=== PATIENT | female | born 1975 | race Caucasian/White ===

== ENCOUNTER 2024-03-31 20:15 | Emergency (ER) | payer OTHER, SELFPAY ==
[2024-03-31] VITALS (17 sets, daily range): BP systolic 90–102; BP diastolic 50–59; PULSE 59–72; RESP 12–22; TEMP 36.6; O2SAT 92–96; BMI 17.4
--- NOTE | 2024-03-31 20:33 | DI.RAD.S_ITS ---
PROCEDURE: XR CHEST 1V INDICATIONS: chest pain TECHNIQUE: One view of the chest was acquired. COMPARISON: None. FINDINGS: Surgical changes and devices: None. Lungs and pleura: Lungs are clear. No pleural effusions or pneumothorax. Mediastinum: Mediastinal contours appear normal. Heart size is normal. Bones and chest wall: No suspicious bony lesions. Overlying soft tissues appear unremarkable. IMPRESSION: No acute cardiopulmonary abnormality is seen. Dictated by: Juan Dela Cruz M.D. on 03/31/2024 at 21:09 Approved by: Juan Dela Cruz M.D. on 03/31/2024 at 21:09
[2024-03-31 20:42] LABS: Prothrombin Time 11.4 SECONDS (9.4-12.5)
[2024-03-31 20:44] LABS: PTT Partial Thromboplastin Tim 37 SECONDS (25.1-36.5)
[2024-03-31 20:46] LABS: Alanine Aminotransferase 47 IU/L (<35); Albumin 4.5 g/dL (3.5-5.0); Albumin Globulin Ratio 1.3 (1.0-2.8); Alkaline Phosphatase 57 U/L (38-126); Aspartate Aminotransferase 87 IU/L (14-36); BUN Creatinine Ratio 31.7 (6-22); Bilirubin Total 0.3 mg/dL (0.2-1.3); Blood Urea Nitrogen 19 mg/dL (7-17); Carbon Dioxide 30 mmol/L (22-32); Chloride 104 mmol/L (98-107); Creatine Kinase 88 U/L (30-135); Estimated Glomerular Filt Rate > 60 mL/min (>60); Globulin 3.5 g/dL (1.7-4.1); Glucose 71 mg/dL (70-100); HEMOLYSIS < 15 (0-50); Lipase 154 U/L (23-300); Magnesium 2.3 mg/dL (1.6-2.3); Potassium 3.8 mmol/L (3.4-5.1); Sodium 140 mmol/L (137-145)
[2024-03-31 20:48] LABS: Add Manual Diff / Slide Review NO; Basophils Absolute Auto 100 /uL (0-100); Basophils Percent Auto 0.8 % (0-2); Eosinophils Absolute Auto 1000 /uL (0-450); Eosinophils Percent Auto 10.1 % (2-4); Hematocrit 38.1 % (36-46); Hemoglobin 12.7 g/dL (12.0-16.0); Lymphocytes Absolute Auto 4400 /uL (1100-4500); Lymphocytes Percent Auto 46.4 % (25-40); Mean Corpuscular HGB Conc 33.2 % (30-36); Mean Corpuscular Hemoglobin 30.4 PG (26-34); Mean Corpuscular Volume 91.6 fL (80-100); Monocytes Absolute Auto 600 /uL (0-900); Monocytes Percent Auto 6.8 % (3-14); Neutrophils Absolute Auto 3400 /uL (1500-7000); Neutrophils Percent Auto 35.9 % (50-75); Platelet Count 294 X10^3/uL (150-400); Red Blood Cell Count 4.16 X10^6/uL (4.0-5.2); Red Cell Distribution Width 13.8 % (11.6-14.8); White Blood Cell Count 9.5 X10^3/uL (4.5-11.0)
[2024-03-31 20:57] LABS: Troponin I < 0.012 ng/mL (0.01-0.034)
[2024-03-31 21:38] LABS: Ethanol (ETOH) 209 mg/dL
--- NOTE | 2024-03-31 22:26 | ED_ITS ---
HPI - Chest Pain General Chief Complaint: Chest Pain Stated Complaint: chest pressure Time Seen by Provider: 03/31/24 22:26 Source: EMS Mode of arrival: EMS Limitations: no limitations History of Present Illness HPI narrative: 48-year-old female with intermittent alcohol use complains of recent chest pain, resolved. She is recently moved to [place] from [facility], had prior upper endoscopy May 2023 [facility] showing Sweeney's esophagus, taking omeprazole, subsequent gastric bypass surgery same facility June 2023, bowel obstruction December 2023 treated same facility, recent alcohol use, complains of central chest discomfort intermittently last couple of days. She does not recall history of pancreatitis. No black or red stools. No fevers or chills. Chest pain not worse with inspiration or truncal movements. No known coronary artery disease, no known coronary intervention or stress testing. She admits to regular and recent alcohol use. No injury trauma new activities. No history of known coronary artery disease. Related Data Previous Rx's Medication Instructions Recorded sucralfate 1 gram tablet (Carafate) 1 g PO BID 30 days #60 tabs 03/31/24 Allergies Allergy/AdvReac Type Severity Reaction Status Date / Time No Known Drug Allergies Allergy Verified 03/31/24 21:25 Patient History Social History Smoking Status: Never smoker Smoking Status: Never smoker alcohol intake frequency: a few times a week Alcohol type: wine Substance Use Type: does not use Exam Initial Vital Signs Initial Vital Signs: Vital Signs Temperature 97.9 F 03/31/24 20:13 Pulse Rate 63 03/31/24 20:13 Respiratory Rate 16 03/31/24 20:13 Blood Pressure 102/55 L 03/31/24 20:13 Oxygen Delivery Method Room Air 03/31/24 20:13 Course Orders Ordered: Discontinued Medications Famotidine (Famotidine 20 Mg/2 Ml Vial) 20 mg IV NOW LOUIS Last Admin: 03/31/24 22:47 Dose: 20 mg Documented By: NUHA Sodium Chloride (Normal Saline 0.9%) 1,000 mls @ 1,000 mls/hr IV BOLUS ONE Stop: 03/31/24 23:46 Last Infusion: 03/31/24 23:54 Dose: Infused Documented By: Admin: 03/31/24 22:54 Dose: 1,000 mls/hr Documented By: YELITZA Thiamine HCl 100 mg/ Sodium (Chloride) 101 mls @ 404 mls/hr IV NOW ONE Stop: 03/31/24 22:48 Last Infusion: 03/31/24 23:17 Dose: Infused Documented By: Admin: 03/31/24 22:55 Dose: 404 mls/hr Documented By: YELITZA Vital Signs Vital signs: Vital Signs - 8 hr 03/31/24 23:30 03/31/24 23:30 03/31/24 23:42 Temperature Pulse Rate 70 Respiratory Rate 12 Blood Pressure 100/59 L 93/52 L Pulse Oximetry 95 Oxygen Delivery Method 03/31/24 23:42 03/31/24 23:45 03/31/24 23:45 Temperature Pulse Rate 72 63 Respiratory Rate 15 12 Blood Pressure 94/52 L Pulse Oximetry 96 92 Oxygen Delivery Method 04/01/24 00:01 04/01/24 00:20 Temperature 98.1 F Pulse Rate 67 Respiratory Rate 15 Blood Pressure 100/57 L Pulse Oximetry 98 Oxygen Delivery Method Room Air MDM - Chest Pain Lab Data Attestation: I reviewed the patient's lab results. 03/31/24 20:17 03/31/24 20:17 Labs: Lab Results 03/31/24 03/31/24 03/31/24 Range/Units 20:17 20:30 22:15 WBC 9.5 (4.5-11.0) X10^3/uL RBC 4.16 (4.0-5.2) X10^6/uL Hgb 12.7 (12.0-16.0) g/dL Hct 38.1 (36-46) % MCV 91.6 (80-100) fL MCH 30.4 (26-34) PG MCHC 33.2 (30-36) % RDW 13.8 (11.6-14.8) % Plt Count 294 (150-400) X10^3/uL Neut % (Auto) 35.9 L (50-75) % Lymph % (Auto) 46.4 H (25-40) % [place] % (Auto) 6.8 (3-14) % Eos % (Auto) 10.1 H (2-4) % Baso % (Auto) 0.8 (0-2) % Neut # (Auto) 3400 (5827-7332) /uL Lymph # (Auto) 4400 (7057-1159) /uL [place] # (Auto) 600 (0-900) /uL Eos # (Auto) 1000 H (0-450) /uL Baso # (Auto) 100 (0-100) /uL PT 11.4 (9.4-12.5) SECONDS INR 1.0 (0.9-1.3) APTT 37 H (25.1-36.5) SECONDS Sodium 140 (137-145) mmol/L Potassium 3.8 (3.4-5.1) mmol/L Chloride 104 (98-107) mmol/L Carbon Dioxide 30 (22-32) mmol/L BUN 19 H (7-17) mg/dL Creatinine 0.60 (0.52-1.04) mg/dL Estimated GFR > 60 (>60) mL/min BUN/Creatinine Ratio 31.7 H (6-22) Glucose 71 (70-100) mg/dL Calcium 9.0 (8.4-10.2) mg/dL Magnesium 2.3 (1.6-2.3) mg/dL Total Bilirubin 0.3 (0.2-1.3) mg/dL AST 87 H (14-36) IU/L ALT 47 H (<35) IU/L Alkaline Phosphatase 57 (38-126) U/L Total Creatine Kinase 88 (30-135) U/L Troponin I < 0.012 < 0.012 (0.01-0.034) ng/mL Total Protein 8.0 (6.3-8.2) g/dL Albumin 4.5 (3.5-5.0) g/dL Globulin 3.5 (1.7-4.1) g/dL Albumin/Globulin Ratio 1.3 (1.0-2.8) Lipase 154 (23-300) U/L Ethyl Alcohol 209 H ( - 10) mg/dL Imaging Data Chest x-ray: Radiologist's Impression: [address] [address] XRay Report Signed Patient: Estrella Lam MR#: [id number] : 1975 Acct:[id number] Age/Sex: 48 / F Date of Service: 03/31/24 Loc: ED Accession Number: [id number] Procedure: XR chest 1V Ordering Provider: Ramon Logan MD PROCEDURE: XR CHEST 1V INDICATIONS: chest pain TECHNIQUE: One view of the chest was acquired. COMPARISON: None. FINDINGS: Surgical changes and devices: None. Lungs and pleura: Lungs are clear. No pleural effusions or pneumothorax. Mediastinum: Mediastinal contours appear normal. Heart size is normal. Bones and chest wall: No suspicious bony lesions. Overlying soft tissues appear unremarkable. IMPRESSION: No acute cardiopulmonary abnormality is seen. Dictated by: Juan Dela Cruz M.D. on 03/31/2024 at 21:09 Approved by: Juan Dela Cruz M.D. on 03/31/2024 at 21:09 ECG Data Attestation: I personally reviewed and interpreted this ECG as follows: Interpretation: Normal sinus rhythm with rate of 61, no obvious ST segment elevation or depression changes. T-wave inversion lead 3 upright in leads F and 2 contiguous leads. Normal HI QRS and QTC intervals. MDM Narrative Medical decision making narrative: 48-year-old female with complex abdominal history, complains of chest pain in context of recent alcohol use including earlier today, blood alcohol level 200s noted, lipase unremarkable. No GI bleeding symptoms. Screening EKG without obvious ischemic changes, no known CAD. Lipase normal. History of Barretts esophagus, prior abdominal gastric bypass surgery and subsequent bowel obstruction remote. Abdominal exam benign. Suspect acid related discomfort, esophagitis, gastritis, due to recent alcohol use. IV Pepcid, IV fluid bolus Repeat troponin negative. IV fluid bolus, IV thiamine. Continue taking PPI antacid, consider addition of Carafate acid binder. Follow up with her established GI/surgeon providers at [facility]. Encouraged to stop drinking alcohol. Further testing and evaluation as an outpatient Discharge Plan Departure Patient Disposition: Home Clinical Impression: Chest pain, Alcohol intoxication, Sweeney esophagus Activity Restrictions/Additional Instructions: Resolved chest pain, EKG and serial blood testing not suggestive of a heart attack at this time, alcohol intoxication noted, history of Sweeney's esophagus, alcohol will irritate the stomach lining and probably is not helping the esophagus as well, possible gastritis and/or esophagitis might be causing some of your discomfort today. Encouraged to stop drinking alcohol. Continue taking your antacid medication, consider acid binding Carafate medication as well. Follow up with your gastrointestinal and health science specialist at [facility] in [place], until you can establish with local providers. Further evaluation as an outpatient for now. Return to this/nearest emergency department for any change worsening symptoms or any concerns prior Prescriptions: New sucralfate [Carafate] 1 gram tablet 1 g PO BID 30 Days Qty: 60 0RF Stand Alone Forms: Patient Portal/API
[2024-03-31 22:45] LABS: Troponin I < 0.012 ng/mL (0.01-0.034)
[2024-03-31] MEDS: FAMOTIDINE 20 MG/2 ML VIAL IV (22:47)
[2024-03-31] MEDS: SODIUM CHLORIDE 0.9% 1,000 ML 1000 ML IV (22:54)
[2024-03-31] MEDS: THIAMINE 100 MG in SODIUM CHLORIDE 0.9% 100 ML 404 MG IV (22:55)
[2024-04-01 00:01] VITALS: TEMP 36.7
[2024-04-01 00:20] VITALS: BP 100/57; PULSE 67; RESP 15; O2SAT 98
== END 2024-04-01 00:21 | disposition home or self-care (01) ==
PROVIDERS: Emergency Provider Emergency Medicine
DX: R07.9 Chest pain, unspecified (principal); F10.129 Alcohol abuse with intoxication, unspecified; K22.70 Barrett's esophagus without dysplasia; Y90.7 Blood alcohol level of 200-239 mg/100 ml
CPT/HCPCS: 36415; 71045; 80053; 80320; 82550; 83690; 83735; 84484; 85025; 85610; 85730; 93005; 96365; 96375; 99284

== ENCOUNTER → 2024-05-26 09:36 | Outpatient (CLI) | payer OTHER, SELFPAY ==
--- NOTE | 2024-05-26 09:41 | DI.RAD.S_ITS ---
PROCEDURE: XR CHEST 2V INDICATIONS: Shortness of breath TECHNIQUE: 2 views of the chest were acquired. COMPARISON: [facility], , XR CHEST 1V, 03/31/2024, 20:43. FINDINGS: Surgical changes and devices: Cholecystectomy clips are seen on the lateral view. Lungs and pleura: An incomplete inspiratory result is noted, causing a crowded appearance to the lung markings. No focal infiltrates are seen. No pneumothorax or significant pleural effusions are seen. Mediastinum: Mediastinal contours are normal. Heart size is normal. Bones and chest wall: No suspicious bony abnormalities. Soft tissues appear unremarkable. IMPRESSION: Low lung volumes, without an acute abnormality seen by plain film. Dictated by: Ted Carvre M.D. on 05/26/2024 at 9:06 Approved by: Ted Carver M.D. on 05/26/2024 at 9:06
== END ==
LOC: RAD 09:40
PROVIDERS: Referring Provider Registered Nurse; Visit Provider Registered Nurse
DX: R06.02 Shortness of breath (principal)
CPT/HCPCS: 71046

== ENCOUNTER 2024-09-28 08:56 | Emergency (ER) | payer OTHER, SELFPAY ==
[2024-09-28 09:03] VITALS: BP 133/77; PULSE 72; RESP 18; TEMP 37.1; O2SAT 96; BMI 33.7
--- NOTE | 2024-09-28 09:22 | ED.NAVMDI ---
HPI - Nausea/Vomiting/Diarrhea General Chief complaint: Nausea/Vomiting/Diarrhea Stated complaint: diarrhea, Dehydration Time Seen by Provider: 09/28/24 09:00 Source: patient Mode of arrival: Ambulatory History of Present Illness HPI Narrative: Patient is a 49-year-old female. Several days ago was started on antibiotics secondary to bronchitis and an ear infection. She was completed the course of antibiotics. She was still having some fullness in her ears. She was now had diarrhea for the past 8 days. Is tolerating oral intake. Not vomiting. No fevers. States she feels like she was dehydrated. Has tried Imodium at home without improvement. Is having some generalized abdominal tenderness associated with the diarrhea. Has a history of gastric bypass. Related Data Home Medications Medication Instructions Recorded Confirmed amoxicillin 875 mg-potassium 1 tab PO BID 09/28/24 09/28/24 clavulanate 125 mg tablet bupropion HCl 150 mg 24 hr tablet, mg PO 09/28/24 extended release escitalopram oxalate 20 mg tablet 20 mg PO DAILY 09/28/24 09/28/24 hydroxyzine HCl 25 mg tablet 25 mg PO Q8H PRN anxiety 09/28/24 09/28/24 levothyroxine 150 mcg tablet 150 mcg PO QAM 09/28/24 09/28/24 omeprazole 40 mg capsule,delayed 40 mg PO DAILY 09/28/24 09/28/24 release sucralfate 1 gram tablet 1 g PO BID 09/28/24 09/28/24 trazodone 150 mg tablet 150 mg PO ONCE PM 09/28/24 09/28/24 Previous Rx's Medication Instructions Recorded dicyclomine 10 mg capsule 10 mg PO QID PRN abdominal pain 09/28/24 #30 caps Allergies Allergy/AdvReac Type Severity Reaction Status Date / Time venlafaxine [From Effexor] AdvReac Palpitation Verified 09/28/24 09:07 s Review of Systems Review of Systems ROS Unobtainable: All systems reviewed & are unremarkable except as noted in HPI and below Patient History Social History Smoking Status: Never smoker Smoking Status: Never smoker alcohol intake frequency: a few times a week Alcohol type: wine Substance Use Type: does not use Exam Initial Vital Signs Initial Vital Signs: Vital Signs Temperature 98.7 F 09/28/24 09:03 Pulse Rate 72 09/28/24 09:03 Respiratory Rate 18 09/28/24 09:03 Blood Pressure 133/77 09/28/24 09:03 Pulse Oximetry 96 09/28/24 09:03 Oxygen Delivery Method Room Air 09/28/24 09:03 Const General: cooperative, comfortable and No ill appearing HENMT Head: normal to inspection Ears: TM's normal bilaterally and EAC's normal Resp Effort & Inspection: normal respiratory effort Auscultation: clear to auscultation bilaterally Cardio Rate: regular rate Rhythm: regular rhythm GI Inspection: normal to inspection and non-distended Palpation: soft Skin General: no rashes or lesions noted Neuro General: patient alert and patient awake Extrem General: normal to inspection and capillary refill normal Course Orders Ordered: ED Orders 09/28/24 09:15 GI Panel (Film Array) Stat 09/28/24 09:34 Complete Blood Count AUTO DIFF Stat Comprehensive Metabolic Panel Stat Ethanol (ETOH) Stat Lipase Stat Test Serum,Qual Stat Discontinued Medications Dicyclomine HCl (Dicyclomine 10 Mg Capsule) 10 mg PO NOW ONE Stop: 09/28/24 11:35 Sodium Chloride (Normal Saline 0.9%) 1,000 mls @ 1,000 mls/hr IV BOLUS ONE Stop: 09/28/24 10:07 Last Infusion: 09/28/24 10:43 Dose: Infused Documented By: Admin: 09/28/24 09:42 Dose: 1,000 mls/hr Documented By: Ketorolac Tromethamine (Ketorolac 30 Mg/Ml Vial) 15 mg IV NOW ONE Stop: 09/28/24 11:35 Vital Signs Vital signs: Vital Signs - 8 hr 09/28/24 09:03 09/28/24 10:45 09/28/24 10:45 Temperature 98.7 F Pulse Rate 72 63 Respiratory Rate 18 Blood Pressure 133/77 110/55 L Pulse Oximetry 96 94 Oxygen Delivery Method Room Air MDM - Nausea/Vomiting/Diarrhea Lab Data Attestation: I reviewed the patient's lab results. 09/28/24 09:34 09/28/24 09:34 Labs: Lab Results 09/28/24 09/28/24 Range/Units 09:15 09:34 WBC 7.9 (4.5-11.0) X10^3/uL RBC 4.11 (4.0-5.2) X10^6/uL Hgb 12.8 (12.0-16.0) g/dL Hct 37.9 (36-46) % MCV 92.3 (80-100) fL MCH 31.0 (26-34) PG MCHC 33.6 (30-36) % RDW 13.3 (11.6-14.8) % Plt Count 243 (150-400) X10^3/uL Neut % (Auto) 49.0 L (50-75) % Lymph % (Auto) 31.8 (25-40) % [place] % (Auto) 5.9 (3-14) % Eos % (Auto) 12.7 H (2-4) % Baso % (Auto) 0.6 (0-2) % Neut # (Auto) 3900 (5548-3694) /uL Lymph # (Auto) 2500 (8400-8777) /uL [place] # (Auto) 500 (0-900) /uL Eos # (Auto) 1000 H (0-450) /uL Baso # (Auto) 0 (0-100) /uL Sodium 137 (137-145) mmol/L Potassium 3.6 (3.4-5.1) mmol/L Chloride 108 H (98-107) mmol/L Carbon Dioxide 23 (22-32) mmol/L BUN 9 (7-17) mg/dL Creatinine 0.61 (0.52-1.04) mg/dL Estimated GFR > 60 (>60) mL/min BUN/Creatinine Ratio 14.8 (6-22) Glucose 88 (70-100) mg/dL Calcium 8.7 (8.4-10.2) mg/dL Total Bilirubin 0.4 (0.2-1.3) mg/dL AST 30 (14-36) IU/L ALT 23 (<35) IU/L Alkaline Phosphatase 54 (38-126) U/L Total Protein 6.7 (6.3-8.2) g/dL Albumin 3.8 (3.5-5.0) g/dL Globulin 2.9 (1.7-4.1) g/dL Albumin/Globulin Ratio 1.3 (1.0-2.8) Lipase 84 (23-300) U/L Serum , Qual Negative (Negative) Stl C. cayetanensis PCR Not detected (Not Detect) Stool Rotavirus (PCR) Not detected (Not Detect) Stool Adenovirus (PCR) Not detected (Not Detect) Stool Astrovirus (PCR) Not detected (Not Detect) Stool Cryptosporidium PCR Not detected (Not Detect) Stl E.coli Shiga Tox PCR Not detected (Not Detect) St Sh/Enteroin Ecoli PCR Not detected (Not Detect) Stl Enterotoxigenic E PCR Not detected (Not Detect) Stool EPEC (PCR) Not detected (Not Detect) Stl E. histolytica PCR Not detected (Not Detect) Stool Giardia Lamblia PCR Not detected (Not Detect) Stool Sapovirus (PCR) Not detected (Not Detect) Stl P. shigelloides PCR Not detected (Not Detect) St Y.enterocolitica PCR Not detected (Not Detect) Stool Vibrio (PCR) Not detected (Not Detect) Stl Vibrio cholerae PCR Not detected (Not Detect) Stl Enteroaggr Ecoli PCR Not detected (Not Detect) Stl Norovirus GI/GII PCR Not detected (Not Detect) Ethyl Alcohol < 10 ( - 10) mg/dL Campylobacter (PCR) Not detected (Not Detect) C. difficile Tox (PCR) Not detected (Not Detect) Salmonella (PCR) Not detected (Not Detect) Point of Care Testing Test Results Negative Urine Dip Bedside Urine Glucose Negative Bedside Urine Bilirubin - Negative Bedside Urine Ketone - Negative Urine Specific [place] 1.010 Bedside Urine Occult Blood - Negative Bedside Urine pH 6.0 Bedside Urine Protein - Negative Bedside Urine Urobilinogen - Negative Bedside Urine Nitrite - Negative Bedside Urine Leukocytes - Negative Esterase MDM Narrative Medical decision making narrative: Patient was tolerating oral intake. GI panel is negative. There was no indication for antibiotics. Electrolytes are unremarkable. She was still having diarrhea and has had multiple episodes here in the ER. No indication for admission to hospital. I recommended that she increase her fluid intake. Recommended a bland diet. Recommended Imodium/loperamide. We also discussed other treatment such as probiotics and probiotics. Recommended that she contact her primary doctor for follow-up. Will prescribe Bentyl for abdominal cramping. Discharge Plan Departure Patient Disposition: Home Clinical Impression: Diarrhea Instructions: Diarrhea Activity Restrictions/Additional Instructions: I do recommend that you continue to increase your fluid intake. I do recommend a bland diet but be sure that you are eating some solid foods along with drinking fluids. You can continue to use the Imodium/loperamide. You can purchase this [id number]. Contact your primary doctor for a follow-up. Return to the emergency department for new symptoms. Prescriptions: New dicyclomine 10 mg capsule 10 mg PO QID PRN (Reason: abdominal pain) Qty: 30 0RF No Action omeprazole 40 mg capsule,delayed release(DR/EC) 40 mg PO DAILY amoxicillin-pot clavulanate 875-125 mg tablet 1 tab PO BID bupropion HCl 150 mg tablet extended release 24 hr PO escitalopram oxalate 20 mg tablet 20 mg PO DAILY hydroxyzine HCl 25 mg tablet 25 mg PO Q8H PRN (Reason: anxiety) levothyroxine 150 mcg tablet 150 mcg PO QAM sucralfate 1 gram tablet 1 g PO BID trazodone 150 mg tablet 150 mg PO ONCE PM Referrals: Miscellaneous,Doctor, MD [Primary Care Provider] - Stand Alone Forms: Patient Portal/API/Survey
[2024-09-28] MEDS: SODIUM CHLORIDE 0.9% 1,000 ML 1000 ML IV (09:42)
[2024-09-28 09:50] LABS: Add Manual Diff / Slide Review NO; Basophils Absolute Auto 0 /uL (0-100); Basophils Percent Auto 0.6 % (0-2); Eosinophils Absolute Auto 1000 /uL (0-450); Eosinophils Percent Auto 12.7 % (2-4); Hematocrit 37.9 % (36-46); Hemoglobin 12.8 g/dL (12.0-16.0); Lymphocytes Absolute Auto 2500 /uL (1100-4500); Lymphocytes Percent Auto 31.8 % (25-40); Mean Corpuscular HGB Conc 33.6 % (30-36); Mean Corpuscular Volume 92.3 fL (80-100); Monocytes Absolute Auto 500 /uL (0-900); Monocytes Percent Auto 5.9 % (3-14); Neutrophils Absolute Auto 3900 /uL (1500-7000); Platelet Count 243 X10^3/uL (150-400); Red Blood Cell Count 4.11 X10^6/uL (4.0-5.2); Red Cell Distribution Width 13.3 % (11.6-14.8); White Blood Cell Count 7.9 X10^3/uL (4.5-11.0)
[2024-09-28 09:55] LABS: Pregnancy Test Serum,Qual Negative (Negative)
[2024-09-28 09:58] LABS: Alanine Aminotransferase 23 IU/L (<35); Albumin 3.8 g/dL (3.5-5.0); Albumin Globulin Ratio 1.3 (1.0-2.8); Alkaline Phosphatase 54 U/L (38-126); Aspartate Aminotransferase 30 IU/L (14-36); BUN Creatinine Ratio 14.8 (6-22); Bilirubin Total 0.4 mg/dL (0.2-1.3); Blood Urea Nitrogen 9 mg/dL (7-17); Calcium 8.7 mg/dL (8.4-10.2); Carbon Dioxide 23 mmol/L (22-32); Chloride 108 mmol/L (98-107); Estimated Glomerular Filt Rate > 60 mL/min (>60); Globulin 2.9 g/dL (1.7-4.1); Glucose 88 mg/dL (70-100); HEMOLYSIS < 15 (0-50); Lipase 84 U/L (23-300); Potassium 3.6 mmol/L (3.4-5.1); Sodium 137 mmol/L (137-145); Total Protein 6.7 g/dL (6.3-8.2)
[2024-09-28 09:59] LABS: Ethanol (ETOH) < 10 mg/dL
[2024-09-28 10:45] VITALS: BP 110/55; PULSE 63; O2SAT 94
[2024-09-28 10:48] LABS: Adenovirus F 40/41 Not Detected (Not Detect); Astrovirus Not Detected (Not Detect); Campylobacter Not Detected (Not Detect); Clostridium difficile toxin AB Not Detected (Not Detect); Cryptosporidium Not Detected (Not Detect); Cyclospora cayetanensis Not Detected (Not Detect); Entamoeba histolytica Not Detected (Not Detect); Enteroaggregative E.coli Not Detected (Not Detect); Enteropathogenic E.coli Not Detected (Not Detect); Enterotoxigenic E.coli It/st Not Detected (Not Detect); Giardia lamblia Not Detected (Not Detect); Norovirus GI/GII Not Detected (Not Detect); Plesiomonsa shigelloides Not Detected (Not Detect); Rotavirus A Not Detected (Not Detect); Salmonella Not Detected (Not Detect); Sapovirus Not Detected (Not Detect); Shiga-like toxin-prod E.coli Not Detected (Not Detect); Shigella/Enteroinvasive E.coli Not Detected (Not Detect); Vibrio Not Detected (Not Detect); Vibrio cholerae Not Detected (Not Detect); Yersinia enterocolitica Not Detected (Not Detect)
[2024-09-28] MEDS: DICYCLOMINE 10 MG CAPSULE PO (11:40)
[2024-09-28] MEDS: KETOROLAC 30 MG/ML VIAL 15 MG IV (11:40)
[2024-09-28 11:50] VITALS: BP 110/63; PULSE 63; TEMP 36.6; O2SAT 97
== END 2024-09-28 11:51 | disposition home or self-care (01) ==
PROVIDERS: Emergency Provider Emergency Medicine
DX: R19.7 Diarrhea, unspecified (principal); R10.84 Generalized abdominal pain
CPT/HCPCS: 36415; 80053; 80320; 81003; 81025; 83690; 84703; 85025; 87507; 96361; 96374; 99284; J1885

== ENCOUNTER → 2024-12-13 13:46 | Outpatient (CLI) | payer OTHER, SELFPAY ==
[2024-12-13 14:29] LABS: Add Manual Diff / Slide Review NO; Basophils Absolute Auto 0 /uL (0-100); Basophils Percent Auto 0.8 % (0-2); Eosinophils Absolute Auto 800 /uL (0-450); Eosinophils Percent Auto 14.3 % (2-4); Hematocrit 37.8 % (36-46); Hemoglobin 12.6 g/dL (12.0-16.0); Lymphocytes Absolute Auto 2600 /uL (1100-4500); Lymphocytes Percent Auto 45.2 % (25-40); Mean Corpuscular HGB Conc 33.4 % (30-36); Mean Corpuscular Hemoglobin 31.4 PG (26-34); Mean Corpuscular Volume 94.1 fL (80-100); Monocytes Absolute Auto 300 /uL (0-900); Monocytes Percent Auto 5.1 % (3-14); Neutrophils Absolute Auto 2000 /uL (1500-7000); Neutrophils Percent Auto 34.6 % (50-75); Platelet Count 263 X10^3/uL (150-400); Red Blood Cell Count 4.01 X10^6/uL (4.0-5.2); Red Cell Distribution Width 13.9 % (11.6-14.8); White Blood Cell Count 5.7 X10^3/uL (4.5-11.0)
[2024-12-13 14:46] LABS: Hemoglobin A1C% w Est Avg Glu 4.9 % (4.0-6.0)
[2024-12-13 14:48] LABS: Alanine Aminotransferase 24 IU/L (<35); Albumin 4.2 g/dL (3.5-5.0); Albumin Globulin Ratio 1.6 (1.0-2.8); Alkaline Phosphatase 43 U/L (38-126); Aspartate Aminotransferase 31 IU/L (14-36); BUN Creatinine Ratio 16.9 (6-22); Bilirubin Total 0.3 mg/dL (0.2-1.3); Blood Urea Nitrogen 11 mg/dL (7-17); Calcium 8.9 mg/dL (8.4-10.2); Carbon Dioxide 27 mmol/L (22-32); Chloride 102 mmol/L (98-107); Cholesterol 203 mg/dL (140-199); Estimated Glomerular Filt Rate > 60 mL/min (>60); Globulin 2.7 g/dL (1.7-4.1); Glucose 84 mg/dL (70-100); HDL Cholesterol 74 mg/dL (40-60); HEMOLYSIS 32 (0-50); LDL Cholesterol Calculated 115 mg/dL (<100); Potassium 4.2 mmol/L (3.4-5.1); Sodium 135 mmol/L (137-145); Total Protein 6.9 g/dL (6.3-8.2); Triglycerides 69 mg/dL (35-150)
[2024-12-13 15:23] LABS: TSH w/ Reflex to FT4 < 0.02 uIU/mL (0.47-4.68)
[2024-12-13 15:58] LABS: Folate > 20.0 ng/mL (2.76-20.0); Vitamin B12 676 pg/mL (239-931)
[2024-12-13 19:53] LABS: Free T4, Direct Thyroxine 1.48 ng/dL (0.78-2.19)
== END ==
LOC: LAB 13:47
PROVIDERS: PCP Nurse Practitioner Family; Referring Provider Nurse Practitioner Family; Visit Provider Nurse Practitioner Family
DX: E03.9 Hypothyroidism, unspecified (principal); F60.3 Borderline personality disorder; Z98.84 Bariatric surgery status
CPT/HCPCS: 80053; 80061; 82607; 82746; 83036; 84439; 84443; 85025

== ENCOUNTER → 2024-12-28 08:22 | Outpatient (CLI) | payer OTHER, SELFPAY ==
[2024-12-28 09:39] LABS: C-Reactive Protein Quant < 0.5 mg/dL (<1.0)
[2024-12-28 09:42] LABS: Rheumatoid Factor < 8.6 IU/mL (<12.0)
[2024-12-28 09:55] LABS: Erythrocyte Sedimentation Rate 12 MM/HR (0-20)
[2024-12-28 17:16] LABS: Vitamin D 25 Hydroxy (D3) 58.3 ng/mL (30.0-100.0)
[2024-12-30 12:09] LABS: CCP Antibodies IgG/IgA 0 units (0-19)
== END ==
LOC: LAB 08:23
PROVIDERS: PCP Nurse Practitioner Family; Referring Provider Nurse Practitioner Family; Visit Provider Nurse Practitioner Family
DX: M25.50 Pain in unspecified joint (principal); Z98.84 Bariatric surgery status; M10.9 Gout, unspecified; M25.40 Effusion, unspecified joint; E55.9 Vitamin D deficiency, unspecified; E06.3 Autoimmune thyroiditis
CPT/HCPCS: 36415; 82306; 84443; 85651; 86038; 86140; 86200; 86430

== ENCOUNTER 2024-12-29 22:18 | Emergency (ER) | payer OTHER, SELFPAY ==
[2024-12-29] VITALS (7 sets, daily range): BP systolic 118–130; BP diastolic 61–67; PULSE 62–76; RESP 13–16; TEMP 36.6; O2SAT 95–97
--- NOTE | 2024-12-29 22:40 | DI.RAD.S_ITS ---
PROCEDURE: XR CHEST 1V INDICATIONS: altered mental status TECHNIQUE: One view of the chest was acquired. COMPARISON: [facility], CR, XR CHEST 2V, 05/26/2024, 9:39. [facility], CR, XR CHEST 1V, 03/31/2024, 20:43. FINDINGS: Surgical changes and devices: Right upper quadrant surgical clips. Lungs and pleura: Lungs are clear. No pleural effusions or pneumothorax. Mediastinum: Mediastinal contours appear normal. Heart size is normal. Bones and chest wall: No suspicious bony lesions. Overlying soft tissues appear unremarkable. IMPRESSION: No acute cardiothoracic process. Dictated by: Arden Raymundo M.D. on 12/30/2024 at 0:14 Approved by: Arden Raymundo M.D. on 12/30/2024 at 0:15
[2024-12-29 22:48] LABS: Add Manual Diff / Slide Review NO; Basophils Absolute Auto 100 /uL (0-100); Basophils Percent Auto 0.7 % (0-2); Eosinophils Absolute Auto 1000 /uL (0-450); Eosinophils Percent Auto 12.9 % (2-4); Hematocrit 36.2 % (36-46); Lymphocytes Absolute Auto 4100 /uL (1100-4500); Mean Corpuscular HGB Conc 33.1 % (30-36); Mean Corpuscular Hemoglobin 31.1 PG (26-34); Mean Corpuscular Volume 93.9 fL (80-100); Monocytes Absolute Auto 600 /uL (0-900); Monocytes Percent Auto 7.1 % (3-14); Neutrophils Absolute Auto 2400 /uL (1500-7000); Neutrophils Percent Auto 29.3 % (50-75); Platelet Count 228 X10^3/uL (150-400); Red Blood Cell Count 3.86 X10^6/uL (4.0-5.2); Red Cell Distribution Width 13.3 % (11.6-14.8); White Blood Cell Count 8.1 X10^3/uL (4.5-11.0)
--- NOTE | 2024-12-29 22:51 | EKG_ITS ---
[address] [address] [address], [place] [address] Test Date: 2024-12-29 Pat Name: Estrella Lam Department: [facility] Room: Gender: Female Emergency Communications Operator: : 1975 Requested By: Order Number: [id number] Reading MD: Marcelo Lees Measurements Intervals [place] Rate: 68 P: -23 AR: 156 QRS: 22 QRSD: 104 T: 3 QT: 426 QTc: 452 Interpretive Statements Normal sinus rhythm Electronically Signed On 12-30-2024 8:31:07 PST by Marcelo Lees
[2024-12-29 22:55] LABS: Alanine Aminotransferase 23 IU/L (<35); Albumin 4.1 g/dL (3.5-5.0); Albumin Globulin Ratio 1.5 (1.0-2.8); Alkaline Phosphatase 47 U/L (38-126); Aspartate Aminotransferase 30 IU/L (14-36); Bilirubin Total 0.3 mg/dL (0.2-1.3); Blood Urea Nitrogen 13 mg/dL (7-17); Calcium 8.8 mg/dL (8.4-10.2); Carbon Dioxide 26 mmol/L (22-32); Chloride 103 mmol/L (98-107); Estimated Glomerular Filt Rate > 60 mL/min (>60); Globulin 2.8 g/dL (1.7-4.1); Glucose 92 mg/dL (70-100); HEMOLYSIS < 15 (0-50); Potassium 4.1 mmol/L (3.4-5.1); Sodium 138 mmol/L (137-145); Total Protein 6.9 g/dL (6.3-8.2)
[2024-12-29 23:11] LABS: Ammonia (NH3) < 9 umol/L (9-30)
[2024-12-29 23:20] LABS: UR Morphine/Opiate cutoff 300 Negative (Negative); Ur Creatinine Normal (Normal); Ur Specific Gravity Normal (Normal); Urine Amphetamines Negative (Negative); Urine Barbiturates Negative (Negative); Urine Benzodiazepines Negative (Negative); Urine Cocaine Negative (Negative); Urine MDMA Negative (Negative); Urine Methadone Negative (Negative); Urine Methamphetamines Negative (Negative); Urine Oxycodone Negative (Negative); Urine Phencyclidine Negative (Negative); Urine Tetrahydrocannabinol Positive (Negative); Urine Tricyclic Antidepressant Negative (Negative); Urine pH Normal (Normal)
--- NOTE | 2024-12-29 23:21 | DI.CT.S_ITS ---
PROCEDURE: CT HEAD/BRAIN WO CON INDICATIONS: alterted mental status, seizure like activity TECHNIQUE: Noncontrast 4.5 mm thick angled axial sections acquired from the foramen magnum to the vertex, with coronal and sagittal reformats. For radiation dose reduction, the following was used: automated exposure control, adjustment of mA and/or kV according to patient size. COMPARISON: None. FINDINGS: Image quality: Diagnostic. CSF spaces: Basal cisterns are patent. No extra-axial fluid collections. Ventricles are normal in size and shape. Brain: No midline shift. No intracranial masses or hemorrhage. Grier-white matter interface is normal. Skull and face: Calvarium and visualized facial bones are intact, without suspicious lesions. Sinuses: Air-fluid levels are present in the maxillary sinuses and left sphenoid sinus. Inspissated secretions are present in the bilateral ethmoid air cells and right sphenoid sinus. The mastoid air cells are clear. The middle ear cavities are clear. The frontal sinuses are clear. IMPRESSION: Air-fluid levels inspissated secretions in the paranasal sinus, which can be seen with acute sinusitis. Otherwise, no acute intracranial abnormality. Dictated by: Arden Raymundo M.D. on 12/30/2024 at 0:07 Approved by: Arden Raymundo M.D. on 12/30/2024 at 0:09
--- NOTE | 2024-12-29 23:24 | ED.ANXIETY ---
HPI - Anxiety General Chief Complaint: Anxiety Stated Complaint: Anxiety Time Seen by Provider: 12/29/24 22:39 Source: patient and EMS Mode of arrival: EMS History of Present Illness HPI narrative: 49-year-old female with history of anxiety, depression, PTSD, tonight had sensation of heart racing and shortness of breath, tingling of hands, felt quite anxious, felt like she might be having a panic attack. She took evening dose of hydroxyzine, has not missed any doses of her chronic medications. Denies thoughts of hurting herself or others. Denies hearing any internal voices. Denies use of drugs/alcohol Related Data Home Medications Medication Instructions Recorded Confirmed escitalopram oxalate 20 mg tablet 20 mg PO DAILY 09/28/24 12/27/24 hydroxyzine HCl 25 mg tablet 25 mg PO Q8H PRN anxiety 09/28/24 12/27/24 omeprazole 40 mg capsule,delayed 40 mg PO DAILY 09/28/24 12/27/24 release sucralfate 1 gram tablet 1 g PO BID 09/28/24 12/27/24 trazodone 150 mg tablet 150 mg PO ONCE PM 09/28/24 12/27/24 albuterol sulfate 90 mcg/actuation 2 puff inhalation wheezing 12/13/24 12/27/24 aerosol inhaler bupropion HCl 150 mg 24 hr tablet, mg PO TID 12/13/24 12/27/24 extended release lidocaine 5 % topical patch patch topical 12/13/24 12/27/24 Previous Rx's Medication Instructions Recorded levothyroxine 125 mcg tablet 125 mcg PO ONCE #90 tabs 12/16/24 methocarbamol 750 mg tablet 750 mg PO Q8H #90 tabs 12/16/24 Allergies Allergy/AdvReac Type Severity Reaction Status Date / Time venlafaxine [From Effexor] AdvReac Palpitation Verified 12/27/24 13:43 s Patient History Medical History (Updated 12/30/24 @ 02:25 by Ramon Logan MD) Environmental allergies Migraines Gout ADHD PTSD (post-traumatic stress disorder) Anxiety Major depressive disorder Borderline personality disorder Hypothyroidism Surgical History (Updated 12/13/24 @ 13:17 by DANIELLE Leger-RINKU) History of bariatric surgery Social History Smoking Status: Never smoker Smoking Status: Never smoker alcohol intake frequency: a few times a week Alcohol type: wine Exam Narrative Exam Narrative: GENERAL: Well-developed patient, in mild distress. HEAD: Atraumatic. Normocephalic. EYES: Pupils equal round and reactive. Extraocular motions intact. No scleral icterus. No injection or drainage. ENT: Nose without bleeding, purulent drainage. Throat without erythema, tonsillar hypertrophy or exudate. Airway patent. NECK: Trachea midline. Non tender CARDIOVASCULAR: Regular rate and rhythm without murmurs, gallops, or rubs. RESPIRATORY: Clear to auscultation. Breath sounds equal bilaterally. No wheezes, rales, or rhonchi. GASTROINTESTINAL: Abdomen soft, non-tender, nondistended. EXTREMITIES: No edema or joint tenderness. BACK: Nontender without deformity or crepitance. No flank tenderness. NEURO: AOx3. Motor functions grossly nonfocal SKIN: No rash or erythema of visible areas Initial Vital Signs Initial Vital Signs: Vital Signs Temperature 97.8 F 12/29/24 22:27 Pulse Rate 71 12/29/24 22:27 Respiratory Rate 16 12/29/24 22:27 Blood Pressure 130/65 12/29/24 22:27 Pulse Oximetry 95 12/29/24 22:27 Oxygen Delivery Method Room Air 12/29/24 22:27 Course Orders Ordered: Discontinued Medications Hydroxyzine HCl (Hydroxyzine Hcl 25 Mg Tablet) 25 mg PO NOW ONE Stop: 12/30/24 01:58 Last Admin: 12/30/24 02:01 Dose: 25 mg Documented By: HNG Vital Signs Vital signs: Vital Signs - 8 hr 12/29/24 22:27 12/29/24 22:27 12/29/24 22:40 Temperature 97.8 F Pulse Rate 71 74 Respiratory Rate 16 Blood Pressure 130/65 130/65 Pulse Oximetry 95 95 Oxygen Delivery Method Room Air 12/29/24 22:41 12/29/24 22:41 12/29/24 23:01 Temperature Pulse Rate 73 76 Respiratory Rate Blood Pressure 120/67 Pulse Oximetry 95 97 Oxygen Delivery Method 12/29/24 23:03 12/29/24 23:03 12/29/24 23:39 Temperature Pulse Rate 67 64 Respiratory Rate 13 Blood Pressure 118/65 Pulse Oximetry 96 95 Oxygen Delivery Method 12/29/24 23:40 12/29/24 23:40 12/30/24 00:00 Temperature Pulse Rate 62 60 Respiratory Rate 16 12 Blood Pressure 120/61 Pulse Oximetry 96 94 Oxygen Delivery Method 12/30/24 00:00 12/30/24 00:30 12/30/24 00:30 Temperature Pulse Rate 59 L Respiratory Rate 11 L Blood Pressure 112/59 L 112/59 L Pulse Oximetry 93 Oxygen Delivery Method Room Air 12/30/24 01:00 12/30/24 01:00 12/30/24 01:30 Temperature Pulse Rate 63 60 Respiratory Rate 12 18 Blood Pressure 110/56 L Pulse Oximetry 94 95 Oxygen Delivery Method Room Air 12/30/24 01:30 Temperature Pulse Rate Respiratory Rate Blood Pressure 94/53 L Pulse Oximetry Oxygen Delivery Method MDM - Anxiety Lab Data Attestation: I reviewed the patient's lab results. Lab results narrative: White blood cell count of 100, hemoglobin 12, platelets adequate. Basic metabolic panel unremarkable, glucose 92. UDS positive for THC otherwise negative. Liver functions unremarkable. Ammonia negative. Urine dip negative. 12/29/24 22:30 12/29/24 22:30 Labs: Lab Results 12/29/24 12/29/24 12/29/24 Range/Units 22:30 22:52 23:03 WBC 8.1 (4.5-11.0) X10^3/uL RBC 3.86 L (4.0-5.2) X10^6/uL Hgb 12.0 (12.0-16.0) g/dL Hct 36.2 (36-46) % MCV 93.9 (80-100) fL MCH 31.1 (26-34) PG MCHC 33.1 (30-36) % RDW 13.3 (11.6-14.8) % Plt Count 228 (150-400) X10^3/uL Neut % (Auto) 29.3 L (50-75) % Lymph % (Auto) 50.0 H (25-40) % [place]undy % (Auto) 7.1 (3-14) % Eos % (Auto) 12.9 H (2-4) % Baso % (Auto) 0.7 (0-2) % Neut # (Auto) 2400 (2499-1351) /uL Lymph # (Auto) 4100 (3810-0147) /uL [place]undy # (Auto) 600 (0-900) /uL Eos # (Auto) 1000 H (0-450) /uL Baso # (Auto) 100 (0-100) /uL Sodium 138 (137-145) mmol/L Potassium 4.1 (3.4-5.1) mmol/L Chloride 103 (98-107) mmol/L Carbon Dioxide 26 (22-32) mmol/L BUN 13 (7-17) mg/dL Creatinine 0.65 (0.52-1.04) mg/dL Estimated GFR > 60 (>60) mL/min BUN/Creatinine Ratio 20.0 (6-22) Glucose 92 (70-100) mg/dL Calcium 8.8 (8.4-10.2) mg/dL Total Bilirubin 0.3 (0.2-1.3) mg/dL AST 30 (14-36) IU/L ALT 23 (<35) IU/L Alkaline Phosphatase 47 (38-126) U/L Ammonia < 9 L (9-30) umol/L Total Protein 6.9 (6.3-8.2) g/dL Albumin 4.1 (3.5-5.0) g/dL Globulin 2.8 (1.7-4.1) g/dL Albumin/Globulin Ratio 1.5 (1.0-2.8) U Opiates 300ng/mL cut Negative (Negative) Ur Oxycodone Screen Negative (Negative) Urine Methadone Screen Negative (Negative) Ur Barbiturates Screen Negative (Negative) U Tricyclic Antidepress Negative (Negative) Ur Phencyclidine Scrn Negative (Negative) Ur Amphetamines Screen Negative (Negative) U Methamphetamines Scrn Negative (Negative) Ur MDMA Scrn (Ecstasy) Negative (Negative) U Benzodiazepines Scrn Negative (Negative) Urine Cocaine Screen Negative (Negative) U Marijuana (THC) Screen Positive H (Negative) Urine pH Normal (Normal) Urine Specific [place] Normal (Normal) Ur Creatinine Normal (Normal) Point of Care Testing Test Results Negative Glucose POC 98 Urine Dip Bedside Urine Glucose Negative Bedside Urine Bilirubin - Negative Bedside Urine Ketone - Negative Urine Specific [place] 1.015 Bedside Urine Occult Blood - Negative Bedside Urine pH 6 Bedside Urine Protein - Negative Bedside Urine Urobilinogen - Negative Bedside Urine Nitrite - Negative Bedside Urine Leukocytes - Negative Esterase Imaging Data Chest x-ray: Radiologist's Impression: Clark,Estrella??49??F??1975 ? Allergy/Adv: venlafaxine Close Head CT (Signed) Arden Raymundo - 12/29/24 Chest X-Ray (Signed) Arden Raymundo - 12/29/24 Chest X-Ray (Signed) Ted Carver - 05/26/24 Chest X-Ray (Signed) Jose De Jesus,Scott - 03/31/24 Launch?Image [address] [address] XRay Report Signed Patient: Estrella Lam MR#: [id number] : 1975 Acct:[id number] Age/Sex: 49 / F Date of Service: 12/29/24 Loc: ED Accession Number: [id number] Procedure: XR chest 1V Ordering Provider: Ramon Logan MD PROCEDURE: XR CHEST 1V INDICATIONS: altered mental status TECHNIQUE: One view of the chest was acquired. COMPARISON: [facility], CR, XR CHEST 2V, 05/26/2024, 9:39. [facility], CR, XR CHEST 1V, 03/31/2024, 20:43. FINDINGS: Surgical changes and devices: Right upper quadrant surgical clips. Lungs and pleura: Lungs are clear. No pleural effusions or pneumothorax. Mediastinum: Mediastinal contours appear normal. Heart size is normal. Bones and chest wall: No suspicious bony lesions. Overlying soft tissues appear unremarkable. IMPRESSION: No acute cardiothoracic process. Dictated by: Arden Raymundo M.D. on 12/30/2024 at 0:14 Approved by: Arden Raymundo M.D. on 12/30/2024 at 0:15 CT scan - head: Radiologist's Impression: [address] [address] [address] Scan Report Signed Patient: Estrella Lam MR#: [id number] : 1975 Acct:[id number] Age/Sex: 49 / F Date of Service: 12/29/24 Loc: ED Accession Number: [id number] Procedure: CT head/brain wo con Ordering Provider: Ramon Logan MD PROCEDURE: CT HEAD/BRAIN WO CON INDICATIONS: alterted mental status, seizure like activity TECHNIQUE: Noncontrast 4.5 mm thick angled axial sections acquired from the foramen magnum to the vertex, with coronal and sagittal reformats. For radiation dose reduction, the following was used: automated exposure control, adjustment of mA and/or kV according to patient size. COMPARISON: None. FINDINGS: Image quality: Diagnostic. CSF spaces: Basal cisterns are patent. No extra-axial fluid collections. Ventricles are normal in size and shape. Brain: No midline shift. No intracranial masses or hemorrhage. Grier-white matter interface is normal. Skull and face: Calvarium and visualized facial bones are intact, without suspicious lesions. Sinuses: Air-fluid levels are present in the maxillary sinuses and left sphenoid sinus. Inspissated secretions are present in the bilateral ethmoid air cells and right sphenoid sinus. The mastoid air cells are clear. The middle ear cavities are clear. The frontal sinuses are clear. IMPRESSION: Air-fluid levels inspissated secretions in the paranasal sinus, which can be seen with acute sinusitis. Otherwise, no acute intracranial abnormality. Dictated by: Arden Raymundo M.D. on 12/30/2024 at 0:07 Approved by: Arden Raymundo M.D. on 12/30/2024 at 0:09 ECG Data Attestation: I personally reviewed and interpreted this ECG as follows: Interpretation: Normal sinus rhythm with rate of 68, no obvious ST segment elevation or depression changes. ND once 56, QRS 104, QTC 452. MDM Narrative Medical decision making narrative: 49-year-old female with history of PTSD, anxiety, depression, with labile mood and fast heart rate sensation in dyspnea, tingling of hands, feeling like she might be having a panic attack. Somewhat labile on presentation. CT head ordered from triage, and was negative for any acute changes. EKG and labs pending. EKG unremarkable, labs unremarkable. Patient seems more calm, was able to take her evening dose of hydroxyzine 25 mg, willing to take an additional dose. She has a supply to increase her hydroxyzine dose from 25-50 mg daily. Home with . Advised to follow up with her PCP tomorrow Monday during regular clinic hours. Discharge Plan Departure Patient Disposition: Home Clinical Impression: Anxiety Activity Restrictions/Additional Instructions: Possible panic attack, exacerbation of anxiety, with tingling of the extremities and shortness of breath. An additional dose of oral hydroxyzine was given in the emergency department. Consider increased maintenance dose of hydroxyzine from 25 mg daily to 50 mg daily for now. Follow up with your regular provider on Monday morning, to explore other therapeutic options and treatment of anxiety. Continue taking your other chronic medications as prescribed for now. Return earlier to this/nearest emergency department for any change worsening symptoms or any concerns prior. Thank you for allowing our team to evaluate you today. Prescriptions: No Action methocarbamol 750 mg tablet 750 mg PO Q8H Qty: 90 0RF levothyroxine 125 mcg tablet 125 mcg PO ONCE Qty: 90 3RF lidocaine 5 % adhesive patch,medicated topical albuterol sulfate 90 mcg/actuation HFA aerosol inhaler 2 puff inhalation omeprazole 40 mg capsule,delayed release(DR/EC) 40 mg PO DAILY escitalopram oxalate 20 mg tablet 20 mg PO DAILY hydroxyzine HCl 25 mg tablet 25 mg PO Q8H PRN (Reason: anxiety) sucralfate 1 gram tablet 1 g PO BID trazodone 150 mg tablet 150 mg PO ONCE PM bupropion HCl 150 mg tablet extended release 24 hr PO TID Referrals: Stefanie Morgan, DANIELLE-RINKU [Primary Care Provider] - Stand Alone Forms: Patient Portal/API/Survey, Work Release Note
[2024-12-30] VITALS (7 sets, daily range): BP systolic 94–118; BP diastolic 51–59; PULSE 59–71; RESP 11–18; O2SAT 93–95
--- NOTE | 2024-12-30 01:10 | PC.NURSE ---
Pt is calm. No visible spasms seen and no squirming/thrashing in bed anymore. She is alert and oriented. States she is confused. When this RN asks for clarification on why she is confused she states she wonders why her body acted like it had. Pt is alert to person, place, situation. Partner at bedside.
[2024-12-30] MEDS: hydrOXYzine HCL 25 MG TABLET PO (02:01)
--- NOTE | 2024-12-30 20:15 | PC.NURSE ---
Per Dr. Logan's request- contacted pt re: some sinus inflammation noted on yesterday's CT that he hadn't directly addressed. Pt states she chronically has sinus issues and feels when she takes antibiotics it seems to make things more difficult so she will defer antibiotic rx at this time. Dr. Logan made aware.
== END 2024-12-30 02:33 | disposition home or self-care (01) ==
PROVIDERS: Emergency Provider Emergency Medicine; PCP Nurse Practitioner Family
DX: F41.9 Anxiety disorder, unspecified (principal); R41.82 Altered mental status, unspecified
CPT/HCPCS: 36415; 70450; 71045; 80053; 80305; 81003; 81025; 82140; 82962; 85025; 93005; 99284; A9270

== ENCOUNTER → 2025-06-05 17:17 | Outpatient (CLI) | payer BC, SELFPAY ==
[2025-06-05 21:06] LABS: Free T4, Direct Thyroxine 1.29 ng/dL (0.78-2.19)
[2025-06-05 21:20] LABS: Thyroid Stimulating Hormone 0.854 uIU/mL (0.47-4.68)
== END ==
LOC: LAB 17:18
PROVIDERS: PCP Nurse Practitioner Family; Referring Provider Nurse Practitioner Family; Visit Provider Nurse Practitioner Family
DX: E06.3 Autoimmune thyroiditis (principal)
CPT/HCPCS: 36415; 84439; 84443